=== PATIENT | female | born 1975 | race American Indian/Alaskan Native ===

== ENCOUNTER 2016-05-31 10:00 | Emergency (ER) | payer OTHER, MEDICAID ==
[2016-05-31 11:15] LABS: Anion Gap 22 mmol/L; BUN/Creatinine Ratio 6.25; Blood Urea Nitrogen 5 mg/dL (7-17); Calcium 9.1 mg/dL (8.4-10.2); Carbon Dioxide 20 mmol/L (22-30); Chloride 106.3 mmol/L (98-107); Glucose 105 mg/dL (65-100); Potassium 3.8 mmol/L (3.6-5.0); Sodium 144 mmol/L (137-145)
[2016-05-31 11:17] LABS: Alanine Aminotransferase 75 units/L (7-56); Albumin 4.1 g/dL (3.9-5); Albumin/Globulin Ratio 1.1 %; Alkaline Phosphatase 71 units/L (35-129); Basophils % (Auto) 0.5 % (0.0-1.8); Bilirubin,Total 0.3 mg/dL (0.1-1.2); Eosinophils % (Auto) 0.2 % (0.0-4.3); Hematocrit 40.2 % (30.3-42.9); Hemoglobin 13.1 gm/dl (10.1-14.3); Mean Corpuscular HGB Conc 33 % (30-34); Mean Corpuscular Hemoglobin 31 pg (28-32); Mean Corpuscular Volume 95 fl (79-97); Platelet Count 226 K/mm3 (140-440); Red Blood Count 4.24 M/mm3 (3.65-5.03); Red Cell Distribution Width 14.4 % (13.2-15.2); Total Protein 7.9 g/dL (6.3-8.2); White Blood Count 6.5 K/mm3 (4.5-11.0)
[2016-05-31 11:18] LABS: Bilirubin,Direct < 0.2 mg/dL (0-0.2); Bilirubin,Indirect 0.1 mg/dL
--- NOTE | 2016-05-31 11:20 | Emergency Department Report ---
HPI - General Chief Complaint: Overdose Time Seen by Provider: 05/31/16 10:22 - HPI HPI: Chief complaint: Depression and suicidal thoughts HPI: Patient is a 40-year-old female who states that her mother recently and then she lost a baby to since about one month ago. Patient states she cannot sleep and has been taking [id number] sleep aids which is 25 mg Benadryl all through the day and night to try and sleep. Patient states over the last 24 hours she took 12 tablets of Benadryl. Patient states this is relatively normal amount for her. Patient is here today because she cut her left wrist. Mode of arrival: [EMS] Source: [Patient] and nursing notes Began: Over the last several months Duration: Several months Context: See above Quality: Pain-free Severity: 0 out of 10 Improved with: Nothing Worsened with: Nothing Associated signs and symptoms: Insomnia ED Past Medical Hx - Past Medical History Previous Medical History?: No - Surgical History Past Surgical History?: No - Social History Smoking Status: Current Some Day Smoker Substance Use Type: Alcohol ED Review of Systems ROS: Stated complaint: SUCIDIAL THOUGHTS Other details as noted in HPI ROS Constitutional: No fever ENT: No uri symptoms Cardiovascular: No chest pain Respiratory: No sob or cough GI: No nausea vomiting or diarrhea : No dysuria frequency or urgency, Skin: No rash Neuro: No focal weakness or numbness Psych: depression [place]/lymph: No edema Physical Exam - Physical Exam Vital Signs: Vital Signs 05/31/16 10:18 Temperature 98.4 F Pulse Rate 103 H Respiratory 20 Rate Blood Pressure 118/78 [Right] O2 Sat by Pulse 98 Oximetry Physical Exam: GENERAL: The patient is well-developed well-nourished . Patient is tearful HEENT: Normocephalic. Atraumatic. Extraocular motions are intact. Patient has moist mucous membranes. NECK: Supple. No meningitic signs are noted. There is no adenopathy noted. CHEST/LUNGS: Clear to auscultation. There is no respiratory distress noted. HEART/CARDIOVASCULAR: Regular. There is no tachycardia. There is no gallop rub or murmur. ABDOMEN: Abdomen is soft, nontender. Patient has normal bowel sounds. There is no abdominal distention. SKIN: There are several very superficial linear lacerations to the patient's left volar wrist self-inflicted. There is no edema. There is no diaphoresis. NEURO: The patient is awake, alert, and oriented. The patient is cooperative. The patient has no focal neurologic deficits. The patient has normal speech. MUSCULOSKELETAL: There is no tenderness or deformity. There is no limitation range of motion. There is no evidence of acute injury. ED Course Vital Signs 05/31/16 10:18 Temperature 98.4 F Pulse Rate 103 H Respiratory 20 Rate Blood Pressure 118/78 [Right] O2 Sat by Pulse 98 Oximetry - Reevaluation(s) Reevaluation #1: 05/31/16 11:20 Patient was placed on a 1013 order and will be evaluated by mental health. ED Medical Decision Making - Lab Data Result diagrams: 05/31/16 10:44 05/31/16 10:44 Laboratory Tests 05/31/16 05/31/16 05/31/16 10:44 10:44 10:44 AST 70 H ALT 75 H Salicylates < 0.3 L Acetaminophen Plasma/Serum Alcohol 0.28 H 05/31/16 10:44 AST ALT Salicylates Acetaminophen < 15.0 Plasma/Serum Alcohol Laboratory Tests 05/31/16 13:12 Urine Cocaine Screen Presumptive positive Critical care attestation.: If time is entered above; I have spent that time in minutes in the direct care of this critically ill patient, excluding procedure time. ED Disposition Clinical Impression: Suicidal behavior, Alcohol abuse, Cocaine abuse, Medical clearance for psychiatric admission Depression Qualifiers: Depression Type: unspecified Qualified Code(s): F32.9 - Major depressive disorder, single episode, unspecified Wrist laceration Qualifiers: Encounter type: initial encounter Laterality: left Qualified Code(s): S61.512A - Laceration without foreign body of left wrist, initial encounter Disposition: DC/TX PSY HOSP/PSY UNIT Is pt being admited?: No Does the pt Need Aspirin: No Referrals: PRIMARY CARE, [Primary Care Provider] - 3-5 Days Time of Disposition: 15:55 (transfer to a psychiatric facility)
[2016-05-31 13:23] LABS: Urine Drugs of Abuse Note Disclamer
[2016-05-31 13:44] LABS: Bacteria,Urine 2+ /HPF (Negative); Bilirubin,Urine NEG (Negative); Blood,Urine MOD (Negative); Ketones,Urine NEG (Negative); Leukocyte Esterase,Urine SM (Negative); Mucus,Urine FEW /HPF; Nitrite,Urine NEG (Negative); Protein,Urine <15 mg/dL mg/dL (Negative); Urobilinogen,Urine < 2.0 mg/dL (<2.0)
[2016-05-31] MEDS ORDERED: VITAMIN B-1 IV ONE (15:53)
[2016-05-31] MEDS ORDERED: NACL 0.9% IV ONE (16:00)
[2016-05-31] MEDS ORDERED: VITAMIN B1 IV ONE (16:00)
--- NOTE | 2016-05-31 16:47 | Consultation ---
History of Present Illness - Reason for Consult Consult date: 05/31/16 Reason for consult: suicidal gesture - Chief Complaint Chief complaint: "I got to a breaking point" Ms Vergara is a 40-year-old white female seen for psychiatric consultation in the emergency department. She cut her left wrist with a dull kitchen knife and then called EMS. She states "I got to a breaking point." Her 1-month-old baby within the last month from SIDS. She states she's been distraught since. She reports an ongoing problem with anxiety and alcohol. She states that the of her child has worsened her symptoms. She reports anxiety, panic attacks every time she thinks of her baby. She had a panic attack during the interview. She also reports severe depression, suicidal thoughts, lack of appetite, inability to sleep, and irritability. She reports that she has been drinking alcohol in order to relieve her symptoms. She states whenever she can get the money she drinks 2-3 beers but this is not daily. She also reports smoking marijuana last week and states she normally does not do that. Post interview, her drug screen was available. She is positive for cocaine. In addition she's been attempting to sleep by taking [id number] sleep aids. This consists of Benadryl up to 12 a day. She reports it is not helpful. Medications and Allergies Allergies Allergy/AdvReac Type Severity Reaction Status Date / Time amoxicillin AdvReac Unknown Verified 05/31/16 10:17 Past psychiatric history - Past Medical History Past Medical History: No medical history Past Surgical History: Other (ankle surgery, left, with hardware) - past Psychiatric treatment and history Psych: Anxiety, Addictions, Depression psychiatric treatment history: She reports drinking excessive amounts of alcohol in her 20s. She smokes cigarettes whenever she has the money. She has seen a counselor previously. No medications given for depression or anxiety in the past - Social History Social history: lives with family, smoking, other (this is her boyfriend and 16- year-old and 10-year-old daughters) Mental Status Exam - Vital signs Last Vital Signs Temp 98.4 F 05/31/16 10:18 Pulse 103 H 05/31/16 10:18 Resp 20 05/31/16 10:18 BP 118/78 05/31/16 10:18 Pulse Ox 98 05/31/16 10:18 - Exam Narrative exam: She endorses helplessness and hopelessness. She endorses recent suicidal ideation and attempts by cutting her left wrist. No psychotic symptoms no manic symptoms. No history reported of either Orientation: time, place, person Affect: depressed, anxious Mood: congruent with affect Thought content: other (flashbacks to the night her baby ) Thought Process: Intact Perceptions: none Speech: normal rate and pattern Concentration: unable to pay attention Motor activity: normal Level of consciousness: alert Memory: Intact Sleep Symptoms: Difficulty Falling Asleep Appetite: decreased Interaction: cooperative Results Result Diagrams: 05/31/16 10:44 05/31/16 10:44 Abnormal lab results 05/31/16 05/31/16 05/31/16 Range/Units 10:44 10:44 10:44 Lymph % (Auto) 39.3 H (13.4-35.0) % [place] % (Auto) 13.6 H (0.0-7.3) % [place] # 0.9 H (0.0-0.8) K/mm3 Carbon Dioxide 20 L (22-30) mmol/L BUN 5 L (7-17) mg/dL Glucose 105 H (65-100) mg/dL AST (5-40) units/L ALT (7-56) units/L Urine WBC (Auto) (0.0-6.0) /HPF U Epithel Cells (Auto) (0-13.0) /HPF Salicylates (2.8-20.0) mg/dL Plasma/Serum Alcohol 0.28 H (0-0.07) gm% 05/31/16 05/31/16 05/31/16 Range/Units 10:44 10:44 13:12 Lymph % (Auto) (13.4-35.0) % [place] % (Auto) (0.0-7.3) % [place] # (0.0-0.8) K/mm3 Carbon Dioxide (22-30) mmol/L BUN (7-17) mg/dL Glucose (65-100) mg/dL AST 70 H (5-40) units/L ALT 75 H (7-56) units/L Urine WBC (Auto) 7.0 H (0.0-6.0) /HPF U Epithel Cells (Auto) 37.0 H (0-13.0) /HPF Salicylates < 0.3 L (2.8-20.0) mg/dL Plasma/Serum Alcohol (0-0.07) gm% All other labs normal. Assessment and Plan Assessment and plan: Impression: Suicidal gesture Major depressive disorder worsened by the psychosocial stressors which include the of her child Consider possibility of alcohol abuse and abuse of [id number] sleep aids Recommendation: Continue 1013 Transfer to inpatient psychiatric facility - Psychiatric problem (1) Major depression Current Visit: Yes Status: Acute Qualifiers: Major depression recurrence: recurrent Active/Remission status: currently active Major depression episode severity: severe Psychotic features: without psychotic features Qualified Code(s): F33.2 - Major depressive disorder, recurrent severe without psychotic features
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
[2016-06-01] MEDS ORDERED: celeXA PO SCH (15:00)
[2016-06-01] MEDS: LEXAPRO PO SCH (16:39)
[2016-06-02] MEDS: LEXAPRO PO SCH (10:15)
--- NOTE | 2016-06-02 10:20 | Progress Note ---
Subjective - Reason for Consult Consult date: 06/02/16 Reason for consult: Psychiatry Follow-Up - Chief Complaint Chief complaint: "A better day" 40 y.o. AA female for psychiatric consultation in the emergency department. Upon arrival to patient's room she had just finished washing up. She stated that she feels a lot better today than yesterday, but her anxiety is still elevated. When she thinks about the of her child, she stated, "The anxiety gets the best of me." She acknowledge taking her Lexapro yesterday and would like to continue her medication treatment once discharged. Patient states that her appetite is "fine" and her quality of sleep has gotten better. She denies SI/HI's or AVH at this time. Mental Status Exam - Vital signs Last Vital Signs Temp 98.8 F 06/01/16 22:00 Pulse 72 06/01/16 22:00 Resp 18 06/01/16 22:00 BP 142/85 06/01/16 22:00 Pulse Ox 100 06/01/16 22:00 - Exam Orientation: time, place, person Affect: flat Mood: anxious Thought content: other (none) Thought Process: Intact Perceptions: none Speech: normal rate and pattern Concentration: focused Motor activity: other (ambulatory) Level of consciousness: alert Memory: Intact Interaction: cooperative, pleasant Assessment and Plan Impression: Severe Depression, PTSD (Flashback from of baby) Major depressive disorder worsened by the psychosocial stressors which include the of her child Consider possibility of alcohol abuse and abuse of [id number] sleep aids Recommendation: Continue 1013 Transfer to inpatient psychiatric facility Continue Lexapro 10 mg PO daily for depression. Spoke with patient about Black Box warning for SSRI's (SI's)
[2016-06-02 17:31] VITALS: BP 140/79
== END 2016-06-02 17:32 ==
LOC: EEVIPCON 10:00 → ED 10:00
DX: S61.512A Laceration without foreign body of left wrist, initial encounter (principal); F32.9 Major depressive disorder, single episode, unspecified; R45.851 Suicidal ideations; F14.10 Cocaine abuse, uncomplicated; F10.10 Alcohol abuse, uncomplicated; F17.200 Nicotine dependence, unspecified, uncomplicated; W45.8XXA Other foreign body or object entering through skin, initial encounter; Y93.9 Activity, unspecified; Y99.9 Unspecified external cause status; Y92.89 Other specified places as the place of occurrence of the external cause
CPT/HCPCS: 36415; 80048; 80074; 80307; 81001; 81025; 85025; 96365; 99285; G0480; J3411; 80320